=== PATIENT | female | born 1990 | race Hispanic/Latino ===

== ENCOUNTER 2018-10-22 12:08 | Outpatient (CLI) | payer OTHER ==
[~2018-10-22] VITALS: Ht 147.3 cm; Wt 81.6 kg
[~2018-10-22 12:08] MED LIST: DICY10AM PO; LOPE2TAB11 PO
[2018-10-22 12:28] VITALS: BP 106/62
[2018-10-22 13:17] LABS: APPEARANCE, URINE HAZY (CLEAR); BACTERIA, URINE AUTO NEGATIVE (NEGATIVE); BILIRUBIN, URINE AUTO NEGATIVE (NEGATIVE); BLOOD, URINE BLOOD NEGATIVE (NEGATIVE); COLOR, URINE YELLOW (YELLOW); GLUCOSE, URINE (UA) AUTO NEGATIVE (NEGATIVE); KETONE, URINE AUTO NEGATIVE (NEGATIVE); LEUKOCYTE ESTERASE, URINE AUTO 1+ (NEGATIVE); NITRITE, URINE AUTO NEGATIVE (NEGATIVE); PROTEIN, URINE AUTO NEGATIVE (NEGATIVE); RBC, URINE AUTO 0 /HPF (0-3); SPECIFIC GRAVITY URINE AUTO 1.009 (1.002-1.035); SQUAMOUS EPITHELIAL CELL UR AU 1 /HPF (0-6); UROBILINOGEN, URINE AUTO 0.2 mg/dL (0.0-2.0); WBC, URINE AUTO 1 /HPF (0-3)
--- NOTE | 2018-10-22 14:23 | IPNPDOC ---
Text Note Date of Service The patient was seen on 10/22/18. NOTE Triage Note Nathaly is a 28yo at 33+ weeks presenting to L&D with a variety of symptoms- back pain, intermittent abdominal pain, some vaginal itching with urination, some discomfort with urination at the end of the stream, hot flashes. No obvious increased vaginal discharge. She has tried to hydrate this morning to address her discomfort. She notes having recently been treated for a UTI last week. She denies any vaginal bleeding/LOF/consistently painful ctx. Feels good movement. complicated by GDMA1, obesity, IBS, and smoking. Vitals wnl, afebrile General - AAOX3, sitting up in bed comfortably, NAD, conversant Abdomen - Gravid uterus, no fundal tenderness, soft, NTTP SSE (RN as public health engineer): NEFG, scant white discharge in vaginal vault, cervix visually thick/closed FHRT: Reactive NST, +accels, no decels, mod mary grace [place]: uterine irritability, no ctx Labs: Urinalysis wnl MARBELLA/WP: positive for budding yeast/hyphae, no clue cells or trichomonas Assessment: Nathaly is a 28yo at 33+ weeks with yeast infection s/p abx course for recent UTI- MARBELLA/WP positive for yeast. No signs of labor. status reassuring. Urinalysis wnl. Vitals wnl. Plan: -safe for discharge home -Rx 3 day course of clotrimazole given from flex clinic stock and discussed how to use -Continue good hydration -Keep next routine OB visit next Wednesday -Return precautions discussed Dr. Tiffanie Calloway MD VS,Marianne, I+O VS, Marianne, I+O Vital Signs Date Time Temp Pulse Resp B/P (MAP) Pulse Ox O2 Delivery O2 Flow Rate FiO2 10/22/18 12:28 98.4 92 18 106/62 (77) Tiffanie Callwoay MD Oct 22, 2018 14:23
== END 2018-10-22 14:14 | disposition home or self-care (01) ==
LOC: M LDO 12:08
PROVIDERS: ATTEND Obstetrics & Gynecology
DX: O26.893 Other specified pregnancy related conditions, third trimester (principal); R39.15 Urgency of urination; O62.3 Precipitate labor; B37.3 Candidiasis of vulva and vagina; Z3A.32 32 weeks gestation of pregnancy
CPT/HCPCS: 59025; 81001; G0378; G0463

== ENCOUNTER 2018-11-03 09:26 | Outpatient (CLI) | payer OTHER ==
[~2018-11-03] VITALS: Ht 147.3 cm; Wt 79.7 kg
[2018-11-03 09:47] VITALS: BP 96/54
[2018-11-03] MEDS ORDERED: BETAMETHASONE SOLUSPAN 6MG/ML INJ 5ML (J0702) As Ordered ONE (10:41)
[2018-11-03] MEDS ORDERED: BETAMETHASONE SOLUSPAN 6MG/ML INJ 5ML (J0702) IM SCH (11:00)
[2018-11-04] MEDS ORDERED: TUMS500C PO (10:55)
== END 2018-11-03 10:48 | disposition home or self-care (01) ==
LOC: M LDO 09:26
PROVIDERS: ATTEND Obstetrics & Gynecology
DX: O47.03 False labor before 37 completed weeks of gestation, third trimester (principal); Z3A.34 34 weeks gestation of pregnancy; O24.913 Unspecified diabetes mellitus in pregnancy, third trimester; O99.213 Obesity complicating pregnancy, third trimester; O99.333 Smoking (tobacco) complicating pregnancy, third trimester
CPT/HCPCS: 87081; 96372; G0378; G0463; J0702

== ENCOUNTER 2018-11-04 10:22 | Outpatient (CLI) | payer OTHER ==
[~2018-11-04] VITALS: Ht 147.3 cm; Wt 81.1 kg
[2018-11-04] MEDS ORDERED: BETAMETHASONE SOLUSPAN 6MG/ML INJ 5ML (J0702) IM ONE (10:30)
[2018-11-04] MEDS ORDERED: TUMS500C PO (10:55)
== END 2018-11-04 11:10 | disposition home or self-care (01) ==
LOC: M LDO 10:22
PROVIDERS: ATTEND Obstetrics & Gynecology
DX: O26.893 Other specified pregnancy related conditions, third trimester (principal); Z3A.35 35 weeks gestation of pregnancy
CPT/HCPCS: 96372; G0378; J0702

== ENCOUNTER 2018-11-05 10:02 | Outpatient (CLI) | payer OTHER ==
[~2018-11-05] VITALS: Ht 147.3 cm; Wt 80.6 kg
[~2018-11-05 10:02] MED LIST changes: +TUMS500C PO
[2018-11-05 10:20] VITALS: BP 114/63
--- NOTE | 2018-11-05 11:01 | IPNPDOC ---
Text Note Date of Service The patient was seen on 11/05/18. NOTE 28 yo at 35+1 weeks gestation presented to L&D with back pain and intermittent contractions. She has been seen numerous times for these concerns. She completed a course of BTMZ yesterday due to complaint of contractions and being fingertip dilated 3 days ago. She denies any vaginal bleeding, leakage of fluid, or discharge. She endorses excellent movement. Chaperoned by L&D RN Vitals - VSS, afebrile, normotensive, non tachycardic General - AAOX3, laying in bed, NAD Abdomen - Gravid uterus, no fundal tenderness Cervix - FT/50/-3, posterior, unchanged from prior exams. FHR - Reactive NST with moderate variability, +accels, no decels Patient not in labor. status reassuring. She has flexeril at home, which she hasn't taken, and I recommended she try it for her back pain. She has her next appointment scheduled for Wednesday. Return to care sooner for any urgent concerns. All patient questions answered. Eamon Patricia, DO A-FIB/CHADSVASC A-FIB History Current/History of A-Fib/PAF?: No EAMON PATRICIA DO November 05, 2018 11:01
== END 2018-11-05 11:09 | disposition home or self-care (01) ==
LOC: M LDO 10:02
PROVIDERS: ATTEND Obstetrics & Gynecology
DX: O26.893 Other specified pregnancy related conditions, third trimester (principal); Z3A.35 35 weeks gestation of pregnancy
CPT/HCPCS: 59025; G0378; G0463

== ENCOUNTER 2018-11-07 08:38 | Outpatient (CLI) | payer OTHER ==
[~2018-11-07] VITALS: Ht 147.3 cm; Wt 80.6 kg
[2018-11-07 09:07] VITALS: BP 115/64
[2018-11-07] MEDS ORDERED: METF500T13 PO (11:10)
[2018-11-07] MEDS ORDERED: LOPE2CAP PO (11:10)
== END 2018-11-07 10:10 | disposition home or self-care (01) ==
LOC: M LDO 08:38
PROVIDERS: ATTEND Obstetrics & Gynecology
DX: O26.893 Other specified pregnancy related conditions, third trimester (principal); N89.8 Other specified noninflammatory disorders of vagina; O47.03 False labor before 37 completed weeks of gestation, third trimester; Z3A.35 35 weeks gestation of pregnancy
CPT/HCPCS: 59025; G0378; G0463

== ENCOUNTER 2018-11-18 09:42 | Outpatient (CLI) | payer OTHER ==
[~2018-11-18] VITALS: Ht 147.3 cm; Wt 79.5 kg
[~2018-11-18 09:42] MED LIST changes: +LOPE2CAP PO; +METF500T13 PO
[2018-11-18 09:54] VITALS: BP 104/59
[2018-11-18] MEDS ORDERED: PRENTAB9 PO (10:05)
[2018-11-18] MEDS ORDERED: MAPA500T2 PO (10:07)
== END 2018-11-18 11:22 | disposition home or self-care (01) ==
LOC: M LDO 09:42
PROVIDERS: ATTEND Obstetrics & Gynecology
DX: O26.893 Other specified pregnancy related conditions, third trimester (principal); R10.30 Lower abdominal pain, unspecified; O47.1 False labor at or after 37 completed weeks of gestation; Z3A.37 37 weeks gestation of pregnancy
CPT/HCPCS: 59025; G0378; G0463

== ENCOUNTER 2018-11-23 06:41 | Outpatient (CLI) | payer OTHER ==
[~2018-11-23] VITALS: Ht 147.3 cm; Wt 78.0 kg
[~2018-11-23 06:41] MED LIST changes: +MAPA500T2 PO; +PRENTAB9 PO
[2018-11-23] MEDS ORDERED: LOPE-1 PO (07:08)
[2018-11-23] MEDS ORDERED: MAPA500T2 PO (07:10)
[2018-11-23 07:13] VITALS: BP 114/76
--- NOTE | 2018-11-23 07:54 | IPNPDOC ---
Text Note Date of Service The patient was seen on 11/23/18. NOTE 28 y/o at 37+5 with increasing reg cycles. No fear of SROM. No VB. Pos FM. Also c/o diarrhea and N/V since yest AM. VSSAF NST Cat 2, no accels yet. Mod mary grace. Cx 3-4/70/-3/ballotable a/p: Latent labor. Will give her a 1L bolus and SBAR to Dr Calloway. May need a BPP or cx recheck. Sessions A-FIB/RUBÉN A-FIB History Current/History of A-Fib/PAF?: No SESSIONS,KRUNAL Wilkins MD November 23, 2018 07:54
[2018-11-23] MEDS ORDERED: ONDANSETRON 4MG/2ML VIAL (J2405) IV PRN (08:00)
[2018-11-23] MEDS ORDERED: LR 1,000 ML IV ONE ×2 (08:00→09:15)
[2018-11-23 08:21] VITALS: BP 112/77
[2018-11-23 09:06] VITALS: BP 121/61
[2018-11-23 10:30] VITALS: BP 120/72
[2018-11-23 11:24] VITALS: BP 118/73
[2018-11-23 11:52] VITALS: BP 131/71
--- NOTE | 2018-11-23 12:09 | IPNPDOC ---
Text Note Date of Service The patient was seen on 11/23/18. NOTE Triage Note Nathaly is a 28yo with SIUP at approx 37wk presenting with ctx- she called Dr. Smith at 0500 and he advised her to come in. She came in after [address] Smith checked her cervix at 0730, which was /-2 (ballotable)- he notes this is no change from prior exams. She has been seen very frequently in triage for similar complaints, Dr. Smith did a rule out of SROM for her just yesterday. She calls the triage nurse every single day with various complaints. Today she does not complaint of lof or vaginal bleeding. Has good movement. She has been nauseous and states has vomited and had diarrhea. Declines zofran. Requests IV fluids. 2 L of IVF given. Vitals wnl, afebrile Cat I FHRT with no accels, mod mary grace, no decels [place]: irregular ctx SCE per Dr. Smith /-2 formal BPP done in radiology 02/09, KINSEY 18cm Assessment: Nathaly is a 28yo with SIUP at approx 37wk with NO evidence of active labor. Pt has myriad complaints on a daily basis. While she has irregular ctx, cervix is unchanged per Dr. Smith from prior exams. Vitals wnl. Reassuring assessment. Plan: -pt to follow up as scheduled in OB clinic -pt encouraged to focus on hydration -labor precautions discussed -safe for discharge home Dr. Tiffanie Calloway MD A-FIB/CHADSVASC A-FIB History Current/History of A-Fib/PAF?: No Current Oral Anticoagulant The: No VS,Fishbone, I+O VS, Fishbone, I+O Vital Signs Date Time Temp Pulse Resp B/P (MAP) Pulse Ox O2 Delivery O2 Flow Rate FiO2 11/23/18 10:30 93 120/72 (88) 11/23/18 09:06 98.8 24 98 Tiffanie Calloway MD November 23, 2018 12:08
--- NOTE | 2018-11-23 12:32 | REP ---
OB ULTRASOUND, BIOPHYSICAL PROFILE: Real-time sonographic evaluation of gravid uterus performed. There is a single living intrauterine gestation, estimated gestational age reportedly 37 weeks 5 days, EDC 12/09/2018. Cervix is closed and measures 4.2 cm in length. heart rate 144 beats per minute. Amniotic fluid within normal limits, KINSEY 18 within normal range of 7.4 to 24.1. Biophysical profile score 8/8. S/D ratio 2.35 within normal range of 1.6 to 2.6. RI 0.57 slightly below normal range of 0.59 to 0.75. position vertex. Placenta fundal and on the right, grade 3 with no previa or abruption. Electronically Signed by Junior Oneill MD 11/24/2018 10:55 A
== END 2018-11-23 12:00 | disposition home or self-care (01) ==
LOC: M LDO 06:41
PROVIDERS: ATTEND Obstetrics & Gynecology
DX: O62.0 Primary inadequate contractions (principal); O21.2 Late vomiting of pregnancy; Z3A.33 33 weeks gestation of pregnancy
CPT/HCPCS: 59025; 76815; 76819; 76820; G0378; G0463

== ENCOUNTER 2018-11-26 00:47 | Outpatient (CLI) | payer OTHER ==
[~2018-11-26] VITALS: Ht 147.3 cm; Wt 78.5 kg
[~2018-11-26 00:47] MED LIST changes: +LOPE-1 PO
[2018-11-26 01:13] VITALS: BP 105/68
--- NOTE | 2018-11-26 04:06 | IPNPDOC ---
Text Note Date of Service The patient was seen on 11/26/18. NOTE Triage Note Nathaly is a 28yo with SIUP at approx 38wk presenting with ctx. Notably, this is NINTH triage visit since 19 October for either SROM workup or labor check. Dr. Smith and I just saw her late last week for labor check- her SCE at that time was 3/70/-2. She needed BPP on that date for nonreactive NST, BPP was 8/8. She notes tonight ctx are 9/10 in pain and she has "difficulty going upstairs because of ctx". She calls the triage nurse every single day with various complaints. Today she does NOT complain of lof or vaginal bleeding. Has good movement. She notes she eats ice, does not like to hydrate. She asks me why she cannot be induced prior to 39wk. Vitals wnl, afebrile Cat I FHRT with no accels, mod mary grace, no decels [place]: occasional ctx SCE 3/50/-2, head ballotable formal BPP done today in radiology 02/09, KINSEY 10.3cm Assessment: Nathaly is a 28yo with SIUP at approx 38wk with NO evidence of active labor. Pt has myriad complaints on a daily basis. While she has irregular ctx, cervix remains unchanged from prior exams. Vitals wnl. Reassuring assessment. Plan: -pt to follow up as scheduled in OB clinic -pt encouraged to focus on hydration -labor precautions discussed -safe for discharge home MD FERNANDO Gonzalez Fishbone, I+O VSMarianne, I+O Vital Signs Date Time Temp Pulse Resp B/P (MAP) Pulse Ox O2 Delivery O2 Flow Rate FiO2 11/26/18 01:13 98.1 101 18 105/68 (80) Tiffanie Calloway MD November 26, 2018 04:06
[2018-11-26 04:14] VITALS: BP 110/66
--- NOTE | 2018-11-26 04:43 | REPVR ---
EXAM: US Biophysical Profile Without Non-Stress Test EXAM DATE/TIME: 11/26/2018 3:28 AM CLINICAL HISTORY: 28 years old, female; Abnormal findings; Abnormal radiological screening; Third; ; Additional info: Nonreactive nst at term TECHNIQUE: Imaging protocol: US biophysical profile without non-stress testing. COMPARISON: US BPP W/O NON STRESS TEST 11/23/2018 9:45 AM FINDINGS: Other findings: Single intrauterine gestation is seen. vertex presentation is noted. Right lateral fundal placenta is noted with no evidence of placenta previa or abruption. Grade 3 changes are noted in the placenta. Amniotic fluid index is within normal limits measuring 10.3 cm. This is less than the prior exam on 11/23/2018 which it measured 18 cm. The cervix is normal in length measuring 3.8 cm. The endocervical canal is closed. Gross anatomical survey including the profile, kidneys and stomach appear within normal limits. Breathin/2 Gross body movements: 2/2 tone: 2/2 Qualitative amniotic fluid: 2/2 IMPRESSION: Normal biophysical profile score of 8/8 Electronically signed by: Juan R Chanel On 11/26/2018 04:42:51 AM
== END 2018-11-26 04:18 | disposition home or self-care (01) ==
LOC: M LDO 00:47
PROVIDERS: ATTEND Obstetrics & Gynecology
DX: O47.1 False labor at or after 37 completed weeks of gestation (principal); Z3A.38 38 weeks gestation of pregnancy
CPT/HCPCS: 59025; 76815; 76819; 76820; G0378; G0463

== ENCOUNTER 2019-12-07 06:29 | Outpatient (CLI) | payer OTHER ==
[~2019-12-07] VITALS: Ht 147.3 cm; Wt 63.7 kg
[~2019-12-07 06:29] MED LIST changes: -LOPE-1 PO; +LOPE-39 PO; -LOPE2TAB11 PO; +LOPE2TAB12 PO
[2019-12-07] MEDS ORDERED: FLUCONAZOLE 50MG TABLET PO ONE (08:15)
[2019-12-07] MEDS ORDERED: PRENTAB9 PO (08:51)
[2019-12-07 10:31] LABS: CHLAMYDIA DNA AMPLIFICATION NEGATIVE (NEGATIVE); GC DNA AMPLIFICATION NEGATIVE (NEGATIVE)
== END 2019-12-07 08:27 | disposition home or self-care (01) ==
LOC: M LDO 06:29
PROVIDERS: ATTEND Obstetrics & Gynecology
DX: O23.599 Infection of other part of genital tract in pregnancy, unspecified trimester (principal); O34.62 Maternal care for abnormality of vagina, second trimester; Z3A.21 21 weeks gestation of pregnancy
CPT/HCPCS: 87491; 87591; G0378; G0463

== ENCOUNTER 2020-03-01 11:42 | Outpatient (CLI) | payer OTHER ==
[~2020-03-01] VITALS: Ht 147.3 cm; Wt 69.2 kg
--- NOTE | 2020-03-04 09:55 | HPE ---
DATE OF ADMISSION: 03/01/2020 This lady is a 29-year-old 7, para 2, abortio 4 at 34 weeks of gestation. She is a patient of [facility]. She discharged herself from the care of [facility] to be exclusively looked after by [facility]. She was instructed by [facility] to go to any center if she had issues, and if there was an issue to transfer to [facility]. She was last seen a week ago, at which time she had an ultrasound showing a justin breech presentation. She is having monthly ultrasounds and weekly visits, because she has irritable bowel syndrome, takes Vibrance, and takes Macrobid for ongoing chronic urinary tract infections (UTIs). She complains continuously of a consistent vaginal discharge, such as bacterial vaginosis (BV), and she just finished a 2-week course of antifungal cream in the vagina. She has had contractions since 1200 a m. on 03/01/2020. [place] are inconsistent. They come and go. She denies any vaginal bleeding or discharge. She sent to [facility], at which time they placed her on the monitor, gave her some fluids, and told her to come to [facility] for evaluation and check, and if needed to be transferred from [facility] to [facility]. She is a patient of Dr. Kaminski. Risks factors are she has short-interval pregnancies, irritable bowel syndrome, persistent vaginal discharge, depression and anxiety, and still continually has tobacco use. PAST HISTORY: In 2018 at 40 weeks, female, spontaneous vaginal delivery, 7 pounds 8 ounces. In 2019 at 38 weeks, spontaneous vaginal delivery, female, 7 pounds 6 ounces. She has had four miscarriages. PHYSICAL EXAMINATION: No distress. Symphysis fundus height is 34. [place] are noted intermittently. Ultrasound shows a justin breech presentation. Amniotic index (KINSEY) in 3 quadrants 2.30 cm, 4.18 cm, 6.36 cm with a total of 12.8 cm. heart rate is in the 140s. Normal limb motion was noted. No contractions or decelerations were noted. She has a category 1 strip. fibronectin was done. Cervix is posterior, maybe 2, thick, -4 station, still persistent justin breech presentation. Urine is 1005, pH is 5. Blood pressure 121/63, respirations are 18, pulse 69, and temperature is not available. In summary, we have a 34-week with uterine irritability. No evidence of active contractions. Discharged to followup at her provider at [facility] on 03/06/2020. Patient was counseled and discharge instructions were given. QUITAD
== END 2020-03-01 13:50 | disposition home or self-care (01) ==
LOC: M LDO 11:42
PROVIDERS: ATTEND Obstetrics & Gynecology
DX: O26.893 Other specified pregnancy related conditions, third trimester (principal); O62.0 Primary inadequate contractions; Z3A.34 34 weeks gestation of pregnancy
CPT/HCPCS: 59025; 82731; G0378; G0463

== ENCOUNTER 2020-03-14 22:42 | Outpatient (CLI) | payer OTHER ==
[~2020-03-14] VITALS: Ht 147.3 cm; Wt 72.7 kg
[2020-03-14] MEDS ORDERED: FOLI1TAB11 PO (23:24)
[2020-03-14 23:25] VITALS: BP 110/59
[2020-03-14] MEDS ORDERED: VIBE1TAB PO (23:25)
--- NOTE | 2020-03-16 21:38 | HPE ---
DATE OF SERVICE: 03/14/2020 HISTORY OF PRESENT ILLNESS: This lady is a 29-year-old 6, para 2, abortus 3, LMP 07/08/2019, EDC 04/13/2020, at 36 weeks of gestation. She was seen at [facility] today. Pelvic examination was done to check the cervix. She was found to be 2 cm dilated. At 1700 hours, she said she had some spotting and she came to Labor and Delivery at [facility] at midnight. Apparently, she had called [facility] and they said for her to go to the nearest hospital, which the closest to her was [facility]. They told her not to go there because she is , so she came to [facility]. She was not wearing a pad, having no bleeding, no discharge, and no cramping. Risk factors include short interval , IBS, persistent vaginal discharge, depression, anxiety, and tobacco use. She is on vibrant and Macrobid. PAST HISTORY: 1. 2018, 40 weeks, female, spontaneous vaginal delivery, 7 pounds 8 ounces. 2. 2019, 39 weeks, female, spontaneous vaginal delivery, 7 pounds 6 ounces. 3. She has had three abortions, one in 2013, one in 2012, and one in 2017. PHYSICAL EXAMINATION: She is in no distress. Symphysis to fundus height is 36, breech presentation, back anterior. Sterile speculum examination showed no blood, no discharge, no bleeding, no spontaneous rupture of membranes. Cervix is still 2 cm. presently; she has a Category I strip, no contractions, moderate variability, no decelerations. Ultrasound examination was reviewed with the patient, consented. KINSEY in three quadrants, 11.97. Smallest quadrant was 3.50. Khanh breech presentation. Cervix was closed. Urine shows 1025, pH 5, nitrites positive, 250 blood. ASSESSMENT AND PLAN: The patient could possibly have a UTI. Urine was sent for culture and sensitivity. She is presently on Macrobid. The patient was discharged undelivered. She has a follow up appointment in four days with [facility] once more. She was discharged undelivered with counseling regarding going to her primary care facility, which is [facility]. She is no longer a patient of [facility]. She discharged us from her service. The patient will maintain her appointment. Pelvic rest was indicated. We will call her if there is a positive result on her urine. We spent 45 minutes with examination and discussion. MICHELLE
== END 2020-03-15 00:12 | disposition home or self-care (01) ==
LOC: M LDO 22:42
PROVIDERS: ATTEND Obstetrics & Gynecology
DX: O26.893 Other specified pregnancy related conditions, third trimester (principal); Z3A.36 36 weeks gestation of pregnancy
CPT/HCPCS: 59025; G0378; G0463

== ENCOUNTER 2020-04-08 23:37 | Outpatient (CLI) | payer OTHER ==
[~2020-04-08] VITALS: Ht 147.3 cm; Wt 72.2 kg
[~2020-04-08 23:37] MED LIST changes: +FOLI1TAB11 PO; +VIBE1TAB PO
[2020-04-08 23:55] VITALS: BP 108/52
[2020-04-09 01:02] VITALS: BP 113/68
[2020-04-09 01:54] VITALS: BP 104/58
--- NOTE | 2020-04-09 02:02 | IPNPDOC ---
Obstetrical Progress Note Date of Service Apr 09, 2020 Subjective 30yo at 39+3 presents for labor check. Denied n/v/d, cp. sob. shabazz, visual changes, f/c, vb, lof, decreased fm, urinary sx, vaginal dc. Objective Vital Signs Date Time Temp Pulse Resp B/P (MAP) Pulse Ox O2 Delivery O2 Flow Rate FiO2 04/09/20 01:54 64 17 104/58 (73) 04/09/20 01:54 97.6 Room Air Assessment Heart Rate (FHR): 130 Variability: Moderate Accelerations: Positive Decelerations: None Heart Rate Tracing: Category I Tocometer Contractions: Yes Frequency: irregular Sterile Vaginal Examination Dilation: 2cm Effacement (%): 50% Station: -3 Cervical Consistency: Medium Cervical Position: Posterior Postion/Presentation: Cephalic presentation (by US) Assessment and Plan Status: Reassuring Additional Comments 30yo at 39+3 presented for labor check. CAT I tracing, reactive. Irregular contractions on monitor. VS normal. Ceph by US. MVP 4.8cm. +FM on TAUS. SVE 2/50/-3 and unchanged on 2h recheck. Eminent active labor us unlikely at this time. - provided with routine OB return precautions - otherwise to follow up at next HUYEN ERICA Solorzano DO Apr 09, 2020 02:02
== END 2020-04-09 02:00 | disposition home or self-care (01) ==
LOC: M LDO 23:37
PROVIDERS: ATTEND Obstetrics & Gynecology
DX: O47.1 False labor at or after 37 completed weeks of gestation (principal); Z3A.39 39 weeks gestation of pregnancy
CPT/HCPCS: 59025; 76815; G0378; G0463

== ENCOUNTER 2020-04-12 03:27 | Inpatient (IN) | payer OTHER ==
[2020-04-12] VITALS (12 sets, daily range): BP systolic 86–114; BP diastolic 50–73
[~2020-04-12] VITALS: Ht 147.3 cm; Wt 70.0 kg
[2020-04-12] MEDS ORDERED: OXYTOCIN 30 UNITS IN 0.9% NaCl 500ML IV BAG (J2590) As Ordered ONE ×2 (04:40→05:19)
--- NOTE | 2020-04-12 04:52 | HPEPDOC ---
Obstetrical History & Physical General Date of Admission Apr 12, 2020 at 04:18 History of Present Illness 30yo at 39+5wks presenting for c/o painful ctx's and VB. Denies LOF or DFM. She is noted to have had her care transferred to [facility] with plan to deliver in [place], however, patient presented to [facility]. Chief Complaint: Contractions, term Information Provided By: Patient Age: 30 : 6 Term: 2 Pre-term: 0 Abortions: 3 Livin Care Care: Other (Has been seen at 3 different OB practices - no records from 28 weeks until this admission) Dating Final EDC: Apr 14, 2020 Final EDC for Daily Update: Apr 14, 2020 Final EDC by: 1st trimester (US) (7wk U/S) Antepartum Course Diagnos(e)s Tobacco use in IBS - on Viberzi History of pp depression FOB and 1 daughter has sickle cell trait Past Medical History Past Obstetrical History : Past Obstetrical History: Multigravida ( - EAB x1, SAB x2, x2 with pelvis proven to [id number]) ORACLE ENGINEER History: Spontaneous , Theraputic Family History Significant Family History: No pertinent family hx Social History Marital Status: Family situation: Spouse/partner home Psychosocial History: Depression * Smoker: current smoker Alcohol: Denies Drugs: denies Allergies Coded Allergies: No Known Allergies (Unverified , 03/14/20) patient denies medication allrgies Medications Scheduled Eluxadoline (Viberzi) 75 Mg Tablet, 75 MG PO BID for irritable bowel symptoms Folic Acid (Folic Acid) 1 Mg Tablet, 1 MG PO DAILY No.137/Iron/Folic Acd ( Vitamin Tablet) 1 Each Tablet, 1 TAB PO DAILY Physical Examination Physical Examination GENERAL: Alert and oriented times three. ABDOMEN: Gravid and non-tender to touch. FETUS: Is vertex (VTX) by sterile vaginal examination (SVE), fetus is vertex (VTX) by Fei. EXTREMITIES: No edema. TAUS: cephalic presentation Laboratory Data 24H LABS Laboratory Tests 2 04/12/20 04:22: Serology Scanned Report Hepatitis B Testing Urine Culture: Urinary Tract Infection Pertinent Laboratoy Data Blood Type: B+ RBC Antibody Screen: Negative HIV: Negative Hepatitis B: Negative Rapid Plasma Reagin: Nonreactive Rubella: Immune Chlamydia/Gonorrhea: Negative Group B Streptococcus: Negative (patient showed result from her online patient portal) Glucose Tolerance Test: 72 Anatomy Ultrasound Ultrasound Date: Feb 14, 2020 Placenta Location: Anterior Normal Anatomy: Yes Placenta Previa: No Vaginal Examination Dilation: 6 cm Effacement: 100% Station: -1 Cervical Consistency: Soft Cervical Position: Anterior Presentation: Cephalic presentation (by bedside TAUS) Assessment Heart Rate (FHR): 130 Variability: Increased Accelerations: Positive Decelerations: None Tocometer Contractions: Yes Frequency: every 2-5 min. Multi-drug resistant Organism: No history of MDRO Assessment/Plan Assessment 30yo at 39+5wks presenting to L&D for concern of VB and ctx's. Patient noted to be 6/c/-1 with BBOW. GBS negative per patient report showing patient portal lab results. EFW 3400g Plan Admit and orient. Office Administration Instructor and consent. Diet: clears as tolerated Group B Streptococcus (GBS) negative. Labs and intravenous (IV) per unit protocol. Counseled on Pitocin, AROM, and augmentation of labor (IOL). Lactated Ringers (LR): Bolus 1000mL, then at 125mL/hr. Anticipate normal spontaneous delivery (). C-S as appropriate. HARRISON MILLER DO Apr 12, 2020 04:52
[2020-04-12 05:03] LABS: HEMATOCRIT 37.5 % (36.0-47.0); HEMOGLOBIN 12.3 g/dl (12.0-15.5); MEAN CORPUSCULAR HEMOGLOBIN 29.4 pg (27.0-33.0); MEAN CORPUSCULAR HGB CONC 32.8 g/dl (32.0-36.5); MEAN CORPUSCULAR VOLUME 89.7 fl (80.0-96.0); PLATELET COUNT, AUTOMATED 254 10^3/uL (150-450); RED BLOOD COUNT 4.18 10^6/uL (4.00-5.40); WHITE BLOOD COUNT 13.2 10^3/uL (4.0-10.0)
--- NOTE | 2020-04-12 05:56 | IPNPDOC ---
Obstetrical Progress Note Date of Service Apr 12, 2020 Subjective Patient declines epidural. Feeling ctx's. Interested in AROM. Assessment Heart Rate (FHR): 140 Variability: Moderate Accelerations: Positive Decelerations: Variable (variable decel after AROM) Heart Rate Tracing: Category II Tocometer Contractions: Yes Frequency: regular Sterile Vaginal Examination Dilation: 6 cm Effacement (%): 100% Station: -1 Cervical Consistency: Soft Cervical Position: Anterior Postion/Presentation: Cephalic presentation Assessment and Plan Status: Reassuring Group B Streptococcus: Negative Anticipate: Vaginal Delivery Additional Comments Patient counseled and consented for AROM. AROM performed notable for clear fluid. FHRT notable for variable decel after AROM, no cord prolapse appreciated. FSE placed and positional changes applied. Continue to monitor closely. HARRISON MILLER DO Apr 12, 2020 05:56
--- NOTE | 2020-04-12 06:06 | DNPDOC ---
[facility] Delivery Note Delivery Note DATE OF DELIVERY: 04/12/2020 PREDELIVERY DIAGNOSIS: 39+5/7 weeks' gestation and labor. POST DELIVERY DIAGNOSIS: Delivered. PROCEDURE: Spontaneous vaginal delivery. RESOURCE RECOVERY ENGINEER: Dr. Harrison Miller ANESTHESIA: Local. ESTIMATED BLOOD LOSS: 100 mL. FINDINGS: 6 pound 13 ounce 3140g male infant, Score 9/9, nuchal cord times x1. No meconium appreciated DELIVERY SUMMARY: Patient had rapid cervical progression to c/c/+1. FHRT cat II for concern of bradycardia with baseline 110bpm and variable decels nadiring to the 60s. Patient able to push to +2 station but unable to affect immediate delivery. Patient counseled on recommendation for vacuum-assistance to expedite delivery and desired to proceed. Bladder drained by spontaneous voids while pushing. Presentation was appreciated to be OA. Kiwi vacuum applied over the flexion point ensuring no maternal tissue present. With 1 set of maternal pushes, able to affect delivery of head. Kiwi vacuum removed. No pop-offs. Presentation was OA with restitution to LOT with right shoulder anterior position. Anterior s houlder and body delivered without difficulty. Nuchal cord with occult loop present delivered through. with good tone and vigorous cry on delivery field therefore placed on maternal abdomen. Inspection revealed a 1st degree perineal laceration that was repaired using 3-0 vicryl in routine fashion. Pitocin IV bolus initiated. Three vessel cord clamped x2 and cut by FOB. Third stage spontaneous with intact placenta. Fundal massage performed until firm uterine tone and hemostasis achieved. EBL 100ml. Mother and infant stable and bonding upon my leaving the room. HARRISON MILLER DO Apr 12, 2020 06:05
[2020-04-12] MEDS ORDERED: ENTER DRUG NAME HERE (PATIENT'S OWN MED) As Ordered ONE (21:39)
[2020-04-12] MEDS: VIBERZI 75 MG PO SCH (21:43)
[2020-04-12] MEDS ORDERED: LIDOCAINE 1% MDV 20ML VIAL As Ordered ONE (23:45)
[2020-04-13 06:00] VITALS: BP 102/56
[2020-04-13] MEDS ORDERED: ENTER DRUG NAME HERE (PATIENT'S OWN MED) As Ordered ONE ×2 (08:53→14:35)
[2020-04-13] MEDS: VIBERZI 75 MG PO SCH (09:00)
[2020-04-13] MEDS ORDERED: IBUP80TA PO (09:19)
[2020-04-13] MEDS ORDERED: DIBU10OI TOP (09:19)
[2020-04-13] MEDS ORDERED: Patient Own Medication PO (09:19)
[2020-04-13] MEDS ORDERED: DOCU100C16 PO (09:19)
--- NOTE | 2020-04-16 09:18 | DS ---
DATE OF ADMISSION: 04/12/2020 DATE OF DISCHARGE: 04/13/2020 This lady is a 30-year-old 6, now para 3, who was a patient of center. Came in in active labor at 39 and 5 weeks of gestation. Had a Kiwi assisted delivery because of bradycardia, male infant, 6 pounds 13 ounces, 3140 grams, scores of 9 and 9 at one and five minutes, respectively. She had a little local for a first-degree tear repair. On her second day, we discussed phlebitis, cystitis, mastitis, endometritis, and cellulitis, diet, exercise, pain management, perineal, breast, and wound care. She has no rashes, lesions, or pruritus. No arthralgia or myalgia. No complaint of joint pain. No complaint of cough, wheeze, shortness of breath, or dyspnea on exertion. No nausea, vomiting, diarrhea, or constipation. No urgency or frequency. Her constipation that she does have is treated with Viberzi and MiraLax. Etiology known. Her admitting hemoglobin 12.3, hematocrit 37.5, platelets are 254. Her discharge vital signs: Blood pressure 102/56, respirations 17, pulse 61, and temperature 98.9. We have a patient who delivered a term baby, male infant. Plans are for discharge today. Medications are dispensed at [facility]. A 6-week checkup with [facility]. Expressed understanding of all the plan of care. All questions were answered. A 20-minute discussion. Patient discharged. MICHELLE
--- NOTE | 2020-04-18 09:28 | IPN ---
DATE: 04/12/2020 This patient requested circumcision of her male . After discussing the risks and benefits of circumcision, the medical to non-medical indications, the penile block and aftercare, she expressed understanding of penile block and aftercare, she signed the consent form, all questions were answered, 20 minute discussion. We await the clearance by the mail deliverer. MICHELLE
== END 2020-04-13 15:00 | disposition home or self-care (01) | DRG 807 ==
LOC: M LDO 03:27 → M LDI 04:18 → M OBS 16:10
PROC: 10D07Z6 Extraction of Products of Conception, Vacuum, Via Natural or Artificial Opening (ICD-10-PCS; principal; 2020-04-12)
PROC: 10907ZC Drainage of Amniotic Fluid, Therapeutic from Products of Conception, Via Natural or Artificial Opening (ICD-10-PCS; 2020-04-12)
PROC: 0HQ9XZZ Repair Perineum Skin, External Approach (ICD-10-PCS; 2020-04-12)
DX: O99.334 Smoking (tobacco) complicating childbirth (principal); Z37.0 Single live birth; F17.210 Nicotine dependence, cigarettes, uncomplicated; O99.62 Diseases of the digestive system complicating childbirth; K58.0 Irritable bowel syndrome with diarrhea; O76 Abnormality in fetal heart rate and rhythm complicating labor and delivery; O70.0 First degree perineal laceration during delivery; O69.81X0 Labor and delivery complicated by cord around neck, without compression, not applicable or unspecified; Z3A.39 39 weeks gestation of pregnancy

== ENCOUNTER → 2020-06-05 | Outpatient (CLI) | payer SELFPAY ==
[~2020-06-05] MED LIST changes: +DIBU10OI TOP; +DOCU100C16 PO; +IBUP80TA PO; +Patient Own Medication PO
== END ==
LOC: M LABSMTC 13:22
PROVIDERS: ATTEND Pediatrics
DX: Z20.828 Contact with and (suspected) exposure to other viral communicable diseases (principal)